=== PATIENT | female | born 1990 | race Caucasian/White ===

== ENCOUNTER 2016-09-13 01:39 | Emergency (ER) | payer BC ==
[~2016-09-13] VITALS: Ht 157.5 cm; Wt 86.4 kg
[2016-09-13 01:43] VITALS: TEMP 99
[2016-09-13] MEDS ORDERED: LEXAPRO20 MG PO (01:51)
[2016-09-13] MEDS ORDERED: NORVASC 10MG10 MG PO (01:51)
[2016-09-13] MEDS ORDERED: DEPAKOTE 125MG125 M1 PO (01:52)
[2016-09-13] MEDS ORDERED: VISTARIL 2525 MG/CAP PO (01:53)
[2016-09-13 02:51] LABS: BASO # 0.1 (0.0-0.2); BASO % 0.6 % (0.0-2.0); EOS % 0.5 % (0-4.0); GRAN # 4.7 (1.4-6.5); GRAN % 53.9 % (42.2-75.2); HEMATOCRIT 37.9 % (37.0-47.0); HEMOGLOBIN 12.8 g/dl (12.5-16.0); LYMPH # 3.2 (1.2-3.4); MEAN CELL VOLUME 88 fl (80.0-100.0); MEAN CORPUSCULAR HEMOGLOBIN 30 pg (27.0-31.0); MEAN CORPUSCULAR HGB CONC 34 g/dl (33.0-37.0); MEAN PLATELET VOLUME 9.8 fl (7.4-10.4); MONO # 0.7 (0.1-0.6); MONO % 7.7 % (1.7-9.3); PLATELET COUNT 300 K/mm3 (130-400); RED BLOOD COUNT 4.33 M/mm3 (4.10-5.30); REDCELL DISTRIBUTION WIDTH-CV 13.5 % (11.5-14.5); WHITE BLOOD COUNT 8.7 K/mm3 (4.8-10.8)
[2016-09-13 03:00] LABS: ANION GAP 17 mmol/L (7-16); BLOOD UREA NITROGEN 11 mg/dL (7-17); CALCIUM 8.4 mg/dL (8.4-10.2); CARBON DIOXIDE 22 mmol/L (22-30); CHLORIDE 103 mmol/L (98-107); CREATININE, serum 0.74 mg/dL (0.52-1.25); GLUCOSE 118 mg/dL (74-106); SODIUM 142 mmol/L (137-145)
[2016-09-13 03:13] LABS: ACETAMINOPHEN < 10 ug/mL (10-30); SALICYLATE < 1.0 mg/dL
[2016-09-13 03:55] LABS: PH 5 (5-8); SQUAMOUS EPITHELIAL 0-2 /hpf; URINE APPEARANCE Clear; URINE BACTERIA None Seen /hpf; URINE BILIRUBIN Negative (NEGATIVE); URINE BLOOD 2+ (NEGATIVE); URINE COLOR Yellow; URINE GLUCOSE Negative (NEGATIVE); URINE KETONE Trace (NEGATIVE); URINE RBC 0-2 /hpf; URINE UROBILINOGEN Negative (NEGATIVE); URINE WBC 0-2 /hpf
[2016-09-13 04:02] LABS: AMPHETAMINE URINE NEGATIVE; BARBITURATES URINE NEGATIVE; BENZODIAZEPINES URINE NEGATIVE; METHADONE URINE NEGATIVE; OPIATES URINE NEGATIVE; OXYCODONE URINE NEGATIVE; PHENCYCLIDINE URINE NEGATIVE; PROPOXYPHENE URINE NEGATIVE; THC CANNABINOIDS URINE POSITIVE
[2016-09-13 10:51] VITALS: BP 108/60; PULSE 98
== END 2016-09-13 10:32 | disposition home or self-care (01) ==
LOC: COL.ER 01:39
PROVIDERS: Emergency Medicine
DX: R45.851 Suicidal ideations (principal); F10.120 Alcohol abuse with intoxication, uncomplicated; Y90.7 Blood alcohol level of 200-239 mg/100 ml; F41.9 Anxiety disorder, unspecified; F32.9 Major depressive disorder, single episode, unspecified; S50.812A Abrasion of left forearm, initial encounter; X78.1XXA Intentional self-harm by knife, initial encounter

== ENCOUNTER → 2016-10-02 | Outpatient (CLI) | payer BC ==
[~2016-10-02] MED LIST: DEPAKOTE 125MG125 M1 PO; LEXAPRO20 MG PO; NORVASC 10MG10 MG PO; VISTARIL 2525 MG/CAP PO
== END ==
LOC: BHSO 10:35
DX: F41.1 Generalized anxiety disorder (principal)
CPT/HCPCS: 90791-AI

== ENCOUNTER → 2016-11-17 | Outpatient (CLI) | payer BC | LOC: BHSO 08:58 | DX: F41.1 Generalized anxiety disorder (principal) ==

== ENCOUNTER → 2017-02-22 | Outpatient (CLI) | payer BC | LOC: BHSO 09:47 | DX: F41.1 Generalized anxiety disorder (principal) ==

== ENCOUNTER → 2017-04-10 | Outpatient (CLI) | payer BC | LOC: BHSO 10:40 | DX: F31.73 Bipolar disorder, in partial remission, most recent episode manic (principal) ==

== ENCOUNTER → 2017-05-08 | Outpatient (CLI) | payer BC | LOC: BHSO 14:53 | DX: F41.1 Generalized anxiety disorder (principal) ==

== ENCOUNTER → 2017-06-07 | Outpatient (CLI) | payer BC | LOC: BHSO 13:24 | DX: F41.1 Generalized anxiety disorder (principal) | CPT/HCPCS: G0463 ==

== ENCOUNTER → 2017-07-19 | Outpatient (CLI) | payer BC | LOC: BHSO 09:56 | DX: F33.41 Major depressive disorder, recurrent, in partial remission (principal) | CPT/HCPCS: G0463 ==

== ENCOUNTER → 2018-01-03 | Outpatient (CLI) | payer BC | LOC: BHSO 08:43 | DX: F10.20 Alcohol dependence, uncomplicated (principal) | CPT/HCPCS: G0463 ==

== ENCOUNTER 2020-08-19 03:53 | Emergency (ER) | payer SELFPAY ==
[~2020-08-19] VITALS: Ht 154.9 cm; Wt 90.9 kg
[2020-08-19] MEDS ORDERED: INDERAL 20MG20 MG PO (04:20)
[2020-08-19] MEDS ORDERED: REXULTI1 MG PO (04:21)
[2020-08-19] MEDS ORDERED: MIRENA52 MG IY (04:21)
[2020-08-19] MEDS ORDERED: LIBRIUM 25M25 MG/CAP PO (05:27)
[2020-08-19 05:35] VITALS: BP 127/87; PULSE 74; TEMP 98.9
== END 2020-08-19 05:35 | disposition home or self-care (01) ==
LOC: COL.ER 03:53
DX: F10.239 Alcohol dependence with withdrawal, unspecified (principal); F32.9 Major depressive disorder, single episode, unspecified; Z88.8 Allergy status to other drugs, medicaments and biological substances
CPT/HCPCS: J2250